=== PATIENT | male | born 1985 | race Caucasian/White ===

== ENCOUNTER 2020-01-15 01:04 | Emergency (ER) | payer OTHER, SELFPAY ==
[2020-01-15 01:05] VITALS: BP 155/89; PULSE 77; RESP 16; TEMP 36.7; O2SAT 97; BMI 24.0
--- NOTE | 2020-01-15 01:23 | ED.VISSUMM ---
- ER Visit Summary Date of Service: 01/15/20 Chief Complaint: Scalp laceration History of Present Illness: The patient is a 34 M who presents with a scalp laceration. He states he hit his head on a beam at work. He was trying to duck under it when he raised up. No LOC. No neck pain. Tetanus is up-to-date. Physical Examination: Vital signs are reviewed. Head exam reveals a 2.5 cm V-shaped scalp laceration on the top of the head. No bleeding. No tenderness. Neck and back are nontender. Test Results: None performed Emergency Department Course and Treatment: The patient's laceration was cleansed with alcohol. The V shape was reapproximated into its normal position. I used 2 kathy to reapproximate this. Patient tolerated this well. He will have kathy out in 1 week. Treatment Plan: [] Disposition: Discharge Impression: Scalp laceration, 2.5 cm Laceration repair by ED physician This note was generated with [employer] dictation software. It may contain incorrect words, spelling, and punctuation that were not noted in review of the chart prior to signing ED Disposition - Plan for ED Patient: Instructions: LACERATION, Scalp Referrals: NOT,DEFINED [Primary Care Provider] -
[2020-01-15 01:30] VITALS: BP 155/89; PULSE 77; RESP 16; O2SAT 97
== END 2020-01-15 01:31 | disposition home or self-care (01) ==
PROVIDERS: Emergency Provider Emergency Medicine
DX: S01.01XA Laceration without foreign body of scalp, initial encounter (principal); W22.8XXA Striking against or struck by other objects, initial encounter; Y92.9 Unspecified place or not applicable; Y99.0 Civilian activity done for income or pay
CPT/HCPCS: 12001; 99283